=== PATIENT | female | born 1985 | race Caucasian/White ===

== ENCOUNTER 2017-11-07 01:27 | Emergency (ER) | payer OTHER ==
[~2017-11-07] VITALS: Ht 152.4 cm; Wt 51.6 kg
[2017-11-07 02:10] LABS: HEMATOCRIT 42.6 % (36.0-46.0); HEMOGLOBIN 14.9 G/DL (11.9-15.5); MCH 30.5 PG (29.0-34.0); MCV 87.3 FL (83-99); PLATELET COUNT 319 K/uL (156-360); RBC DIS.WIDTH-CV 11.7 % (11.8-14.6); RBC DIS.WIDTH-SD 37.6 % (39-53); RED BLOOD COUNT 4.88 M/uL (3.80-5.20); WHITE BLOOD COUNT 7.3 K/uL (4.1-10.2)
[2017-11-07 02:22] LABS: ALBUMIN 4.1 g/dL (3.2-4.8)
[2017-11-07 02:23] LABS: CHLORIDE 107 mEq/L (99-109); POTASSIUM 3.8 mEq/L (3.7-5.4); SODIUM 139 mEq/L (136-147)
[2017-11-07 02:25] LABS: GLUCOSE 112 mg/dL (70-99); TOTAL PROTEIN 7.2 g/dL (6.4-8.3)
[2017-11-07 02:27] LABS: TOTAL BILIRUBIN 2.4 mg/dL (0.0-1.0)
[2017-11-07 02:28] LABS: ALKALINE PHOSPHATASE 79 IU/L (3-129)
[2017-11-07 02:29] LABS: CREATININE 0.7 mg/dL (0.6-1.3)
[2017-11-07 02:30] LABS: AST (GOT) 18 IU/L (2-34); GFR ESTIMATE (CALCULATED) > 59 mL/min/; UREA NITROGEN (BUN) 6 mg/dL (9-23)
[2017-11-07 02:31] LABS: ALT (GPT) 18 IU/L (3-49)
[2017-11-07 02:38] LABS: QUANTITATIVE HCG < 4.0 MIU/ML
[2017-11-07 02:44] LABS: APPEARANCE SL.HAZY ((CLEAR)); BILIRUBIN NEGATIVE; BLOOD SMALL; COLOR STRAW ((YELLOW)); GLUCOSE (STRIP) NEGATIVE; KETONES NEGATIVE; LEUKOCYTES MODERATE; NITRITE NEGATIVE; PROTEIN (STRIP) NEGATIVE; SPECIFIC GRAVITY 1.002 (1.000-1.030); UROBILINOGEN 0.2 MG/DL (0.2-1.0)
[2017-11-07 02:47] LABS: BACTERIA RARE /HPF; EPITHELIAL CELLS 3+ /HPF; MUCUS NONE SEEN /LPF; RED BLOOD CELLS 0-5 /HPF (0-5); UCUL ADDED? YES
[2017-11-07 03:28] VITALS: BP 102/61
== END 2017-11-07 02:30 | disposition home or self-care (01) ==
LOC: EME 01:27
DX: R10.9 Unspecified abdominal pain (principal); R51 Headache; R11.2 Nausea with vomiting, unspecified; R19.7 Diarrhea, unspecified; M54.2 Cervicalgia; Z20.828 Contact with and (suspected) exposure to other viral communicable diseases; Z90.49 Acquired absence of other specified parts of digestive tract; Z88.1 Allergy status to other antibiotic agents
CPT/HCPCS: 80053; 81003; 84702; 85027; 87086; 99281; 99283; J1885